=== PATIENT | female | born 1960 | race American Indian/Alaskan Native ===

== ENCOUNTER 2016-10-01 21:07 | Emergency (ER) | payer MEDICARE ==
[2016-10-02 02:45] VITALS: BP 133/82
[2016-10-02] MEDS ORDERED: FUL-GLO OP ONE ×2 (03:17→03:21)
[2016-10-02] MEDS ORDERED: TETRACAINE 0.5% OU PRN (03:21)
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
== END 2016-10-02 04:36 | disposition home or self-care (01) ==
LOC: ED 21:07
DX: H02.9 Unspecified disorder of eyelid (principal); I10 Essential (primary) hypertension; Z86.73 Personal history of transient ischemic attack (TIA), and cerebral infarction without residual deficits; F17.200 Nicotine dependence, unspecified, uncomplicated
CPT/HCPCS: 99283

== ENCOUNTER 2017-06-08 11:19 | Emergency (ER) | payer MEDICARE ==
[2017-06-08 12:24] LABS: Basophils % (Auto) 0.3 % (0.0-1.8); Eosinophils # (Auto) 0.1 K/mm3 (0.0-0.4); Eosinophils % (Auto) 2.9 % (0.0-4.3); Hematocrit 39.6 % (30.3-42.9); Hemoglobin 13.1 gm/dl (10.1-14.3); Lymphocytes # (Auto) 1.9 K/mm3 (1.2-5.4); Lymphocytes % (Auto) 39.1 % (13.4-35.0); Mean Corpuscular HGB Conc 33 % (30-34); Mean Corpuscular Hemoglobin 32 pg (28-32); Mean Corpuscular Volume 98 fl (79-97); Monocytes # (Auto) 0.4 K/mm3 (0.0-0.8); Monocytes % (Auto) 7.3 % (0.0-7.3); Platelet Count 263 K/mm3 (140-440); Red Blood Count 4.03 M/mm3 (3.65-5.03); Red Cell Distribution Width 13.7 % (13.2-15.2)
[2017-06-08 12:46] LABS: Alanine Aminotransferase 18 units/L (7-56); Albumin 4.4 g/dL (3.9-5); BUN/Creatinine Ratio 17; Blood Urea Nitrogen 10 mg/dL (7-17); Calcium 9.7 mg/dL (8.4-10.2); Hemolysis Index 5
[2017-06-08] MEDS ORDERED: CATAPRES PO ONE (16:59)
[2017-06-08] MEDS ORDERED: TORADOL IM ONE (16:59)
[2017-06-08] MEDS ORDERED: TORADOL ONE (17:13)
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
[2017-06-08] MEDS ORDERED: ZOFRAN ODT ONE (18:12)
[2017-06-08] MEDS ORDERED: ZOFRAN ODT PO ONE (18:14)
[2017-06-08 18:51] VITALS: BP 151/107
== END 2017-06-08 18:50 | disposition home or self-care (01) ==
LOC: ED 11:19
DX: G43.909 Migraine, unspecified, not intractable, without status migrainosus (principal); R51 Headache; I10 Essential (primary) hypertension; Z86.73 Personal history of transient ischemic attack (TIA), and cerebral infarction without residual deficits; G89.29 Other chronic pain; Z87.891 Personal history of nicotine dependence; Z88.5 Allergy status to narcotic agent; Z88.8 Allergy status to other drugs, medicaments and biological substances
CPT/HCPCS: 36415; 80053; 85025; 96372; 99284; J1885; Q0162

== ENCOUNTER 2018-06-13 05:39 | Emergency (ER) | payer MEDICARE ==
[2018-06-13 05:51] VITALS: BP 148/87
[2018-06-13] MEDS ORDERED: NORCO 5/325 PO ONE (07:59)
[2018-06-13] MEDS ORDERED: DECADRON IM STA (07:59)
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
[2018-06-13] MEDS ORDERED: COLCHICINE PO ONE (08:01)
--- NOTE | 2018-06-13 08:54 | XRay Report ---
Left ankle, foot: Pain. Routine views demonstrate normal bony alignment and well-preserved joint spaces. No evidence of fracture. The bones are well-mineralized. There is no overt evidence of swelling. Impression: Unremarkable exams.
[2018-06-13] MEDS ORDERED: BENADRYL PO NR (09:00)
== END 2018-06-13 10:00 | disposition home or self-care (01) ==
LOC: ED 05:39
DX: M10.072 Idiopathic gout, left ankle and foot (principal); I10 Essential (primary) hypertension; G89.29 Other chronic pain; F17.200 Nicotine dependence, unspecified, uncomplicated; F12.90 Cannabis use, unspecified, uncomplicated; M54.2 Cervicalgia; Z88.6 Allergy status to analgesic agent; Z86.73 Personal history of transient ischemic attack (TIA), and cerebral infarction without residual deficits; Z90.710 Acquired absence of both cervix and uterus; Z98.51 Tubal ligation status
CPT/HCPCS: 73610; 73630; 96372; 99283; J1100

== ENCOUNTER 2018-12-26 07:33 | Observation (INO) | payer MEDICARE ==
[2018-12-26 07:53] LABS: Basophils % (Auto) 0.7 % (0.0-1.8); Eosinophils # (Auto) 0.1 K/mm3 (0.0-0.4); Eosinophils % (Auto) 2.7 % (0.0-4.3); Hematocrit 40.7 % (30.3-42.9); Hemoglobin 13.6 gm/dl (10.1-14.3); Lymphocytes % (Auto) 46.7 % (13.4-35.0); Mean Corpuscular HGB Conc 34 % (30-34); Mean Corpuscular Volume 98 fl (79-97); Monocytes # (Auto) 0.5 K/mm3 (0.0-0.8); Monocytes % (Auto) 10.9 % (0.0-7.3); Platelet Count 277 K/mm3 (140-440); Red Blood Count 4.16 M/mm3 (3.65-5.03)
[2018-12-26 08:08] LABS: BUN/Creatinine Ratio 21; Blood Urea Nitrogen 15 mg/dL (7-17); Calcium 10.4 mg/dL (8.4-10.2); Hemolysis Index 8
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
--- NOTE | 2018-12-26 09:28 | XRay Report ---
CHEST 2 VIEWS INDICATION / CLINICAL INFORMATION: chest pain. COMPARISON: None available. FINDINGS: SUPPORT DEVICES: None. HEART / MEDIASTINUM: Sternotomy and CABG. Cardiac silhouette is normal in size. LUNGS / PLEURA: Mild bilateral linear atelectasis/scarring. No significant pleural or pulmonary abnor mality No pneumothorax. ADDITIONAL FINDINGS: No significant additional findings. IMPRESSION: 1. No acute findings. Signer Name: Tyrel Arauz MD Signed: 12/26/2018 9:24 AM Workstation Name: [id number]
[2018-12-26] MEDS ORDERED: ASPIRIN PO ONE (09:38)
[2018-12-26] MEDS ORDERED: SODIUM CHLORIDE FLUSH SYRINGE 10 ML IV PRN (18:38)
[2018-12-26] MEDS ORDERED: TYLENOL PO PRN (18:38)
[2018-12-26] MEDS ORDERED: ZOFRAN IV PRN (18:38)
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
[2018-12-26] MEDS ORDERED: NON-FORMULARY (Oxycodone Hcl/Acetaminophen [Percocet 7.5/325 Mg] 1 EACH) PO PRN (18:39)
[2018-12-26] MEDS: DILAUDID IV PRN (20:28)
[2018-12-26] MEDS: BUMEX PO SCH (22:09)
[2018-12-26] MEDS: K-DUR PO SCH (22:10)
[2018-12-26] MEDS: D5/0.45NS 1,000 ML IV SCH (22:10)
[2018-12-26] MEDS: XANAX PO SCH (22:10)
[2018-12-26] MEDS: SODIUM CHLORIDE FLUSH SYRINGE 10 ML IV SCH (22:10)
[2018-12-26] MEDS: PEPCID IV SCH (22:10)
[2018-12-27] MEDS: PERCOCET 5/325 PO PRN ×3 (04:55→22:07)
[2018-12-27 05:32] LABS: Hematocrit 39.1 % (30.3-42.9); Hemoglobin 13.1 gm/dl (10.1-14.3); Mean Corpuscular HGB Conc 34 % (30-34); Mean Corpuscular Volume 98 fl (79-97); Platelet Count 268 K/mm3 (140-440); Red Blood Count 3.99 M/mm3 (3.65-5.03)
[2018-12-27 06:06] LABS: Alanine Aminotransferase 16 units/L (7-56); Albumin 4.5 g/dL (3.9-5); BUN/Creatinine Ratio 16; Blood Urea Nitrogen 11 mg/dL (7-17); Calcium 9.4 mg/dL (8.4-10.2); Hemolysis Index 33
[2018-12-27 07:00] LABS: Anisocytosis 1+; Basophils % (Manual) 0 % (0.0-1.8); Eosinophils % (Manual) 0 % (0.0-4.3); Total Cells Counted 100
[2018-12-27] MEDS ORDERED: LEXISCAN IV ONE (08:04)
[2018-12-27] MEDS ORDERED: LINACLOTIDE 72 MCG PO SCH (10:00)
[2018-12-27] MEDS: PEPCID IV SCH ×2 (11:03→22:06)
[2018-12-27] MEDS: SODIUM CHLORIDE FLUSH SYRINGE 10 ML IV SCH ×2 (11:04→22:08)
[2018-12-27] MEDS: XANAX PO SCH ×2 (11:04→22:06)
[2018-12-27] MEDS: K-DUR PO SCH (11:04)
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
[2018-12-27] MEDS: DILAUDID IV PRN (12:15)
[2018-12-27] MEDS: BUMEX PO SCH ×2 (12:15→22:06)
--- NOTE | 2018-12-27 15:49 | Progress Note ---
Assessment and Plan (1) Acute chest pain Current Visit: Yes Status: Acute Plan to address problem: Chest pain protocol Serial Troponins Lexiscan normal For [facility] on Saturday (2) HTN (hypertension) Current Visit: Yes Status: Chronic Qualifiers: Hypertension type: essential hypertension Qualified Code(s): I10 - Essential (primary) hypertension Plan to address problem: Cont antihypertensives (3) COPD (chronic obstructive pulmonary disease) Current Visit: Yes Status: Chronic Qualifiers: Emphysema type: unspecified Plan to address problem: Cont Duonebs (4) HLD (hyperlipidemia) Current Visit: Yes Status: Chronic Qualifiers: Hyperlipidemia type: unspecified Qualified Code(s): E78.5 - Hyperlipidemia, unspecified Plan to address problem: Cont statins (5) CHF (congestive heart failure) Current Visit: Yes Status: Chronic Qualifiers: Heart failure chronicity: unspecified Plan to address problem: Cont Lasix (6) DVT prophylaxis Current Visit: Yes Status: Acute Plan to address problem: On lovenox ans GI prophylaxis Subjective Date of service: 12/27/18 Principal diagnosis: Chest pain for 3 days Interval history: Chest painpersists Objective - Constitutional Vitals: Vital Signs - 12hr 12/27/18 12/27/18 12/27/18 04:02 04:43 04:44 Temperature 98.0 F 98.6 F Pulse Rate 74 69 64 Respiratory 20 20 Rate Blood Pressure 87/39 116/77 Blood Pressure [Left] O2 Sat by Pulse 96 98 98 Oximetry 12/27/18 12/27/18 12/27/18 04:55 08:00 08:03 Temperature 97.9 F Pulse Rate 75 74 Respiratory 20 20 Rate Blood Pressure 120/84 Blood Pressure [Left] O2 Sat by Pulse 99 Oximetry 12/27/18 12/27/18 12/27/18 08:55 09:10 09:13 Temperature Pulse Rate Respiratory Rate Blood Pressure 105/76 122/77 117/57 Blood Pressure [Left] O2 Sat by Pulse Oximetry 12/27/18 12/27/18 12/27/18 09:15 09:16 10:00 Temperature Pulse Rate Respiratory 20 Rate Blood Pressure 95/53 117/75 Blood Pressure [Left] O2 Sat by Pulse Oximetry 12/27/18 12:26 Temperature 98.5 F Pulse Rate 81 Respiratory 18 Rate Blood Pressure Blood Pressure 123/74 [Left] O2 Sat by Pulse 92 Oximetry General appearance: Present: no acute distress, well-nourished - EENT Eyes: PERRL, EOM intact ENT: hearing intact, clear oral mucosa Ears: bilateral: normal - Neck Neck: supple, normal ROM - Respiratory Respiratory effort: normal Respiratory: bilateral: CTA - Breasts Breasts: normal - Cardiovascular Rhythm: regular Heart Sounds: Present: S1 & S2. Absent: gallop, rub Extremities: pulses intact, No edema, normal color, Full ROM - Gastrointestinal General gastrointestinal: Present: soft, non-tender, non-distended, normal bowel sounds - Genitourinary Female genitourinary: normal - Integumentary Integumentary: clear, warm, dry - Musculoskeletal Musculoskeletal: 1, strength equal bilaterally - Neurologic Neurologic: moves all extremities - Psychiatric Psychiatric: memory intact, appropriate mood/affect, intact judgment & insight - Labs CBC & Chem 7: 12/27/18 04:13 12/27/18 04:13 Labs: Abnormal lab results 12/27/18 12/27/18 Range/Units 04:13 04:13 WBC 4.2 L (4.5-11.0) K/mm3 MCV 98 H (79-97) fl MCH 33 H (28-32) pg Lymphocytes % (Manual) 40.0 H (13.4-35.0) % Total Protein 8.3 H (6.3-8.2) g/dL
[2018-12-27] MEDS: D5/0.45NS 1,000 ML IV SCH (22:07)
--- NOTE | 2018-12-28 03:31 | Treadmill Report ---
INDICATIONS: Chest pain. ORDERING PHYSICIAN: Jazmyne Rizzo MD FINDINGS: There is no scintigraphic evidence of myocardial ischemia. There is a moderate size fixed basal and mid inferior wall defect comprising 10% of the left ventricular myocardium that is moderate in intensity. Gated wall imaging is pertinent for normal wall motion. The left ventricular ejection fraction is measured at 53%. IMPRESSION: 1. No scintigraphic evidence of myocardial ischemia. 2. Moderate size fixed basal and mid inferior wall defect of moderate intensity. 3. Normal wall motion with an ejection fraction measured at 30%. 4. This is a low risk myocardial perfusion scan associated with a 1-year cardiovascular event rate of less than 1%. [facility]# [id number] YASHIRA/TY
[2018-12-28] MEDS: SODIUM CHLORIDE FLUSH SYRINGE 10 ML IV SCH ×2 (09:48→21:31)
[2018-12-28] MEDS: HALFPRIN EC PO SCH (09:48)
[2018-12-28] MEDS: K-DUR PO SCH (09:48)
[2018-12-28] MEDS: XANAX PO SCH ×2 (09:48→21:30)
[2018-12-28] MEDS: BUMEX PO SCH ×2 (09:48→21:30)
[2018-12-28] MEDS: PEPCID IV SCH ×2 (09:48→21:30)
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
--- NOTE | 2018-12-28 10:30 | Progress Note ---
Assessment and Plan (1) Acute chest pain Current Visit: Yes Status: Acute Plan to address problem: Chest pain protocol Serial Troponins Lexiscan normal For [facility] on Saturday (2) HTN (hypertension) Current Visit: Yes Status: Chronic Qualifiers: Hypertension type: essential hypertension Qualified Code(s): I10 - Essential (primary) hypertension Plan to address problem: Cont antihypertensives (3) COPD (chronic obstructive pulmonary disease) Current Visit: Yes Status: Chronic Qualifiers: Emphysema type: unspecified Plan to address problem: Cont Duonebs (4) HLD (hyperlipidemia) Current Visit: Yes Status: Chronic Qualifiers: Hyperlipidemia type: unspecified Qualified Code(s): E78.5 - Hyperlipidemia, unspecified Plan to address problem: Cont statins (5) CHF (congestive heart failure) Current Visit: Yes Status: Chronic Qualifiers: Heart failure chronicity: unspecified Plan to address problem: Cont Lasix (6) DVT prophylaxis Current Visit: Yes Status: Acute Plan to address problem: On lovenox ans GI prophylaxis Subjective Date of service: 12/28/18 Principal diagnosis: Chest pain for 3 days Interval history: Chest painpersists Objective - Constitutional Vitals: Vital Signs - 12hr 12/27/18 12/28/18 12/28/18 23:29 00:00 04:10 Temperature 97.7 F 97.3 F L Pulse Rate 94 H 86 Respiratory 19 20 Rate Blood Pressure 115/79 111/71 O2 Sat by Pulse 95 Oximetry 12/28/18 12/28/18 04:37 08:19 Temperature 98.1 F Pulse Rate 88 74 Respiratory 18 Rate Blood Pressure 119/93 O2 Sat by Pulse 99 99 Oximetry General appearance: Present: no acute distress, well-nourished - EENT Eyes: PERRL, EOM intact ENT: hearing intact, clear oral mucosa Ears: bilateral: normal - Neck Neck: supple, normal ROM - Respiratory Respiratory effort: normal Respiratory: bilateral: CTA - Breasts Breasts: normal - Cardiovascular Rhythm: regular Heart Sounds: Present: S1 & S2. Absent: gallop, rub Extremities: pulses intact, No edema, normal color, Full ROM - Gastrointestinal General gastrointestinal: Present: soft, non-tender, non-distended, normal bowel sounds - Genitourinary Female genitourinary: normal - Integumentary Integumentary: clear, warm, dry - Musculoskeletal Musculoskeletal: 1, strength equal bilaterally - Neurologic Neurologic: moves all extremities - Psychiatric Psychiatric: memory intact, appropriate mood/affect, intact judgment & insight - Labs CBC & Chem 7: 12/27/18 04:13 12/27/18 04:13
[2018-12-28] MEDS ORDERED: NACL 0.9% 500 ML 500 ML IV SCH (11:00)
[2018-12-28 13:55] LABS: INR 1.03 (0.87-1.13)
[2018-12-28] MEDS: DILAUDID IV PRN (15:03)
[2018-12-28] MEDS: PERCOCET 5/325 PO PRN (21:30)
[2018-12-29] MEDS: HALFPRIN EC PO SCH ×2 (10:08→12:21)
[2018-12-29] MEDS: K-DUR PO SCH (10:09)
[2018-12-29] MEDS: PEPCID IV SCH (10:09)
[2018-12-29] MEDS: XANAX PO SCH (10:09)
[2018-12-29] MEDS: BUMEX PO SCH (10:12)
[2018-12-29] MEDS: DILAUDID IV PRN (10:14)
[2018-12-29] MEDS: SODIUM CHLORIDE FLUSH SYRINGE 10 ML IV SCH (10:29)
[2018-12-29] MEDS ORDERED: NACL 0.9% 500 ML 500 ML ONE (12:18)
[2018-12-29] MEDS ORDERED: HALFPRIN EC PO ONE (12:23)
[2018-12-29] MEDS ORDERED: HEPARIN/NS 5000 UNIT/500ML(CATH LAB) 1,000 ML IR ONE (12:28)
[2018-12-29] MEDS ORDERED: NACL 0.9% 500 ML 500 ML IV SCH (13:00)
[2018-12-29] MEDS: VERSED ONE ×3 (13:09→13:33)
[2018-12-29] MEDS: XYLOCAINE 2% INFILTRATI ONE ×2 (13:09→13:25)
[2018-12-29] MEDS: SUBLIMAZE ONE ×5 (13:09→13:41)
[2018-12-29] MEDS: CALAN ONE ×2 (13:27→13:31)
[2018-12-29] MEDS: HEPARIN 10,000 UNITS/10 ML ONE ×2 (13:27→13:31)
[2018-12-29] MEDS: NITROGLYCERIN SYRINGE 3 ML ONE ×2 (13:27→13:31)
--- NOTE | 2018-12-29 14:06 | Event Note ---
Date: 12/29/18 Cardiac cath completed via R radial, no complications. Findings: Angiographically normal coronaries. Echocardiography for LV and valve function. No further cardiac workup OK for cardiac discharge.
--- NOTE | 2018-12-29 14:07 | Cardiac Catherization Report ---
CARDIAC CATHETERIZATION REASON FOR PROCEDURE: Chest pain. PROCEDURES: 1. Left heart catheterization. 2. Selective left and right coronary angiography. 3. Sedation time, start 1322, end 1350. DESCRIPTION OF PROCEDURE: The patient was prepped and draped in a sterile fashion after informed consent. The right radial cath site was prepped and draped after a negative Stefan's test. The right radial artery was entered using the Seldinger technique followed by placement of a 6-[place] hydrophilic sheath. Left coronary angiography was performed using a #3.5 left Jayna, and a #4 right Jayna was used for right coronary angiography. Due to severe tortuosity of the brachiocephalic trunk, we were unsuccessful in transitioning a pigtail catheter into the left ventricle. Left ventricular angiography was therefore not performed. The catheters were removed, sheath removed, and hemostasis achieved using a TR band. The patient was returned to the postprocedure unit in stable condition. There were no complications. FINDINGS: HEMODYNAMICS: Ascending aortic pressure was 109/79. CORONARY ANGIOGRAPHY: The left main coronary artery was angiographically normal. The left anterior descending artery and its diagonal branches were angiographically normal. The circumflex artery and its obtuse marginal branches were angiographically normal. The right coronary artery was dominant and similarly angiographically normal. CONCLUSION: 1. Angiographically normal coronary arteries. 2. Echocardiography will be recommended for left ventricular function and valvular function assessment. [facility]# [id number] MARLIN/TY
--- NOTE | 2018-12-29 16:22 | Discharge Summary ---
Providers - Providers Date of Admission: 12/26/18 09:35 Date of discharge: 12/29/18 Attending physician: WILLY EPPS 12/27/18 07:51 Consult to Physician [CONS] Routine Comment: Consulting Provider: IRENE MOSCOSO Physician Instructions: Reason For Exam: Chest pain 12/29/18 14:06 Consult to Cardiac Rehabilitation [CONS] Routine Reason For Exam: Cardiac Rehab Evaluation Primary care physician: DIANA GIBBS Hospitalization Condition: Stable Hospital course: (1) Acute chest pain Current Visit: Yes Status: Acute Plan to address problem: Chest pain protocol Serial Troponins Lexiscan normal For [facility] on Saturday Cath normal (2) HTN (hypertension) Current Visit: Yes Status: Chronic Qualifiers: Hypertension type: essential hypertension Qualified Code(s): I10 - Essential (primary) hypertension Plan to address problem: Cont antihypertensives (3) COPD (chronic obstructive pulmonary disease) Current Visit: Yes Status: Chronic Qualifiers: Emphysema type: unspecified Plan to address problem: Cont Duonebs (4) HLD (hyperlipidemia) Current Visit: Yes Status: Chronic Qualifiers: Hyperlipidemia type: unspecified Qualified Code(s): E78.5 - Hyperlipidemia, unspecified Plan to address problem: Cont statins (5) CHF (congestive heart failure) Current Visit: Yes Status: Chronic Qualifiers: Heart failure chronicity: unspecified Plan to address problem: Cont Lasix F/u with Dr Valdez as outpqtient Disposition: DC-01 TO HOME OR SELFCARE Core Measure Documentation - Palliative Care Palliative Care/ Comfort Measures: Not Applicable - Core Measures Any of the following diagnoses?: heart failure - Heart Failure Discharge Requirements MADDI/ARB for LVSD if EF <40%: Yes Reason for no MADDI/ARB: Angioedema Beta vale at discharge: Yes Exam - Constitutional Vitals: Temp Pulse Resp BP Pulse Ox 97.4 F L 80 19 105/70 98 12/29/18 16:03 12/29/18 16:03 12/29/18 16:03 12/29/18 16:03 12/29/18 14:40 General appearance: Present: no acute distress, well-nourished - EENT Eyes: Present: PERRL ENT: hearing intact, clear oral mucosa - Neck Neck: Present: supple, normal ROM - Respiratory Respiratory effort: normal Respiratory: bilateral: CTA - Cardiovascular Heart rate: 78 Rhythm: regular Heart Sounds: Present: S1 & S2. Absent: rub, click - Extremities Extremities: no ischemia, pulses intact, pulses symmetrical, No edema Peripheral Pulses: within normal limits - Abdominal General gastrointestinal: Present: soft, non-tender, non-distended, normal bowel sounds Female genitourinary: Present: normal - Rectal Rectal Exam: deferred - Integumentary Integumentary: Present: clear, warm, dry - Musculoskeletal Musculoskeletal: gait normal, strength equal bilaterally - Psychiatric Psychiatric: appropriate mood/affect, intact judgment & insight - Neurologic Neurologic: CNII-XII intact, moves all extremities - Allied Health Allied health notes reviewed: nursing, case management Plan Diet: low fat, low cholesterol, low salt Follow up with: DIANA GIBBS MD [Primary Care Provider] - 3-5 Days
[2018-12-29] MEDS ORDERED: NACL 0.9% 1000 ML 1,000 ML IV SCH (17:00)
[2018-12-29 17:42] VITALS: BP 100/57
== END 2018-12-29 18:49 | disposition home or self-care (01) ==
LOC: ED 07:33 → 4A 09:35
PROVIDERS: ADMIT Internal Medicine; ATTEND Internal Medicine
DX: R07.89 Other chest pain (principal); J44.9 Chronic obstructive pulmonary disease, unspecified; E78.5 Hyperlipidemia, unspecified; I11.0 Hypertensive heart disease with heart failure; I50.9 Heart failure, unspecified
CPT/HCPCS: 36415; 71046; 78452; 80048; 80053; 82962; 83036; 84484; 85007; 85025; 85610; 93005; 93010; 93017; 93306; 93458; 96374; 96375; 96376; A9502; C1769; C1894; G0378; J1170; J1644; J2250; J2405; J2785; J3010; J7040; Q9967

== ENCOUNTER 2019-04-01 22:50 | Emergency (ER) | payer OTHER, MEDICARE ==
[2019-04-02] MEDS ORDERED: oxyCODONE /ACETAMINOPHEN 5-325MG TAB PO ONE (01:58)
[2019-04-02] MEDS ORDERED: CYCLOBENZAPRINE 10 MG TAB PO ONE (01:59)
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
[2019-04-02 07:35] VITALS: BP 130/74
== END 2019-04-02 05:50 | disposition home or self-care (01) ==
LOC: ED 22:50
DX: M79.10 Myalgia, unspecified site (principal); I11.0 Hypertensive heart disease with heart failure; I50.9 Heart failure, unspecified; J44.9 Chronic obstructive pulmonary disease, unspecified; G89.29 Other chronic pain; Z86.73 Personal history of transient ischemic attack (TIA), and cerebral infarction without residual deficits; Z98.890 Other specified postprocedural states; Z79.899 Other long term (current) drug therapy; Z88.6 Allergy status to analgesic agent; Z88.5 Allergy status to narcotic agent; Z88.1 Allergy status to other antibiotic agents; V49.49XA Driver injured in collision with other motor vehicles in traffic accident, initial encounter; Y93.89 Activity, other specified; Y92.410 Unspecified street and highway as the place of occurrence of the external cause; Y99.8 Other external cause status
CPT/HCPCS: 70450; 71046; 72100; 72125

== ENCOUNTER 2020-09-02 16:59 | Emergency (ER) | payer MEDICARE ==
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
[2020-09-02 22:34] LABS: Basophils % (Auto) 0.4 % (0.0-1.8); Eosinophils # (Auto) 0.2 K/mm3 (0.0-0.4); Eosinophils % (Auto) 3.4 % (0.0-4.3); Hemoglobin 12.3 gm/dl (10.1-14.3); Lymphocytes # (Auto) 2.3 K/mm3 (1.2-5.4); Lymphocytes % (Auto) 43.2 % (13.4-35.0); Mean Corpuscular HGB Conc 33 % (30-34); Mean Corpuscular Volume 100 fl (79-97); Monocytes # (Auto) 0.4 K/mm3 (0.0-0.8); Monocytes % (Auto) 6.9 % (0.0-7.3); Platelet Count 246 K/mm3 (140-440); Red Blood Count 3.69 M/mm3 (3.65-5.03); Red Cell Distribution Width 13.6 % (13.2-15.2)
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
[2020-09-02 22:58] LABS: Alanine Aminotransferase 18 units/L (7-56); Albumin 4.3 g/dL (3.9-5); Blood Urea Nitrogen 12 mg/dL (7-17); Calcium 9.5 mg/dL (8.4-10.2); Hemolysis Index 2
[2020-09-02 23:01] LABS: BUN/Creatinine Ratio 17
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
[2020-09-02] MEDS ORDERED: dexAMETHasone 20 MG/5 ML VIAL IV ONE (23:29)
[2020-09-02] MEDS ORDERED: METOCLOPRAMIDE 10 MG/2 ML INJ IV ONE (23:30)
[2020-09-02] MEDS ORDERED: diphenhydrAMINE 50 MG/ML VIAL IV ONE (23:30)
[2020-09-02] MEDS ORDERED: SODIUM CHLORIDE 0.9% 1000 ML 1,000 ML IV ONE (23:30)
[2020-09-03] MEDS ORDERED: KETOROLAC 30 MG/1 ML INJ IV ONE (01:28)
[2020-09-03] MEDS ORDERED: oxyCODONE /ACETAMINOPHEN 5-325MG TAB PO ONE (01:29)
[2020-09-03 05:48] VITALS: BP 110/63
== END 2020-09-03 02:55 | disposition home or self-care (01) ==
LOC: ED 16:59
DX: S16.1XXA Strain of muscle, fascia and tendon at neck level, initial encounter (principal); R51.9 Headache, unspecified; R07.89 Other chest pain; I11.0 Hypertensive heart disease with heart failure; I50.9 Heart failure, unspecified; J44.9 Chronic obstructive pulmonary disease, unspecified; Z90.710 Acquired absence of both cervix and uterus; Z98.890 Other specified postprocedural states; Z79.899 Other long term (current) drug therapy; Z88.8 Allergy status to other drugs, medicaments and biological substances; V49.49XA Driver injured in collision with other motor vehicles in traffic accident, initial encounter; Y93.89 Activity, other specified; Y92.410 Unspecified street and highway as the place of occurrence of the external cause; Y99.8 Other external cause status
CPT/HCPCS: 36415; 70450; 71045; 72040; 73590; 80053; 84484; 85025; 93005; 96361; 96374; 96375; 99284; J1100; J1200; J1885; J2765; J7030